=== PATIENT | female | born 2000 | race Caucasian/White ===

== ENCOUNTER 2024-07-13 01:44 | Emergency (ER) | payer OTHER ==
[~2024-07-13] VITALS: Wt 69.0 kg
[2024-07-13] MEDS ORDERED: traMADol Hydrochloride 50 MG TAB PO ONE (02:15)
== END 2024-07-13 09:25 | disposition home or self-care (01) ==
LOC: ED 01:44
DX: S83.8X2A Sprain of other specified parts of left knee, initial encounter (principal); W06.XXXA Fall from bed, initial encounter; Y93.89 Activity, other specified; Y92.89 Other specified places as the place of occurrence of the external cause; Y99.8 Other external cause status